=== PATIENT | female | born 1970 | race Hispanic/Latino ===

== ENCOUNTER → 2023-11-10 | Outpatient (CLI) | payer SELFPAY | END | disposition home or self-care (01) | LOC: SHCH 08:01 | PROVIDERS: ATTEND Internal Medicine Cardiovascular Disease | DX: I35.0 Nonrheumatic aortic (valve) stenosis (principal); I25.10 Atherosclerotic heart disease of native coronary artery without angina pectoris | CPT/HCPCS: 93306 ==